=== PATIENT | male | born 1950 | race Caucasian/White ===

== ENCOUNTER 2019-03-12 09:09 | Observation (INO) | payer OTHER ==
[~2019-03-12] VITALS: Ht 165.1 cm; Wt 113.4 kg
[2019-03-12] VITALS (12 sets, daily range): BP systolic 116–162; BP diastolic 66–85
--- NOTE | ~2019-03-12 | H ---
[address] [address] HISTORY AND PHYSICAL Name: STEPHAN GRIFFITHS Room: [address] Will Busch#: [id number] Admission: 03/12/19 Attend Phys: Jonathan Stover MD, Discharge: 03/13/19 Date of : 48 Report #: [id number] THIS REPORT FOR: //name// Please refer to the History and Physical performed in the physician's office. By: 1453Medical Records Staff ASIYA /EMMA
[2019-03-12] MEDS ORDERED: QUINAPRIL HCL40 MG PO (09:47)
[2019-03-12] MEDS ORDERED: XYOSTED100 MG/0.5 SUBQ (09:47)
[2019-03-12] MEDS ORDERED: NORVASC 2.5 MG2.5 M1 PO (09:48)
[2019-03-12] MEDS ORDERED: BYSTOLIC10 MG PO (09:48)
[2019-03-12] MEDS ORDERED: OXYBUTYNIN 5 MG5 M2 PO (09:49)
[2019-03-12] MEDS ORDERED: LIPITOR 40 MG T40 M1 PO (09:49)
[2019-03-12] MEDS ORDERED: ARMOUR THYROID60 M1 PO (09:50)
[2019-03-12] MEDS ORDERED: ARMOUR THYROID90 M1 PO (09:51)
[2019-03-12] MEDS ORDERED: HYDRALAZINE 2525 MG PO (09:51)
[2019-03-12] MEDS ORDERED: LORAZEPAM 0.50.5 MG PO (09:51)
[2019-03-12] MEDS ORDERED: FLEXERIL PO ×2 (09:52)
[2019-03-12] MEDS ORDERED: OMEPRAZOLE40 MG PO (09:52)
[2019-03-12] MEDS ORDERED: TAMSULOSIN HCL0.4 MG PO (09:53)
[2019-03-12] MEDS ORDERED: CELEXA 20 MG TA20 MG PO (09:53)
[2019-03-12] MEDS ORDERED: FISH OIL 1,001000 M3 PO (09:53)
[2019-03-12] MEDS ORDERED: FENOFIBRATE160 MG PO (09:53)
[2019-03-12] MEDS ORDERED: DAILY MULTIVIT1 EAC2 PO (09:54)
[2019-03-12] MEDS ORDERED: PROBIOTIC1 EAC7 PO (09:54)
[2019-03-12] MEDS ORDERED: VITAMIN D35000 UNI1 PO (09:54)
[2019-03-12] MEDS ORDERED: SUPER B COMPLE1 EAC2 PO (09:55)
[2019-03-12] MEDS ORDERED: CITRACAL + BON1 EACH PO (09:55)
[2019-03-12] MEDS ORDERED: KLOR-CON M2020 MEQ PO (09:56)
[2019-03-12] MEDS ORDERED: ASA81BEC PO (09:56)
[2019-03-12] MEDS ORDERED: COQ-10100 MG PO (09:56)
[2019-03-12] MEDS ORDERED: DHEA25 MG PO (09:57)
[2019-03-12] MEDS ORDERED: CINNAMON500 MG PO (09:57)
[2019-03-12 09:58] LABS: HEMATOCRIT 55.5 % (42.0-52.0); HEMOGLOBIN 18.6 gm/dL (14.0-18.0); MCH 28.9 pg (26.0-34.0); MCHC 33.5 g/dL (28.0-37.0); MCV 86.1 fL (80.0-100.0); MPV 8.5 fl. (7.2-11.1); RBC 6.45 mil/uL (4.50-6.00); RDW-CV 15.5 % (10.5-14.5); WBC 7.2 thou/uL (4.0-11.0)
[2019-03-12 10:08] LABS: APTT 26.2 Seconds (25.0-31.3); INR 1.2; PROTIME 12.4 Seconds (9.20-11.50)
[2019-03-12 10:47] LABS: ALBUMIN 3.6 g/dL (3.4-5.0); ALKALINE PHOSPHATASE 65 U/L (46-116); ANION GAP 7 mmol/L (7-16); BUN 20 mg/dL (7-18); CALCIUM 9.4 mg/dL (8.5-10.1); CHLORIDE 106 mmol/L (98-107); CHOLESTEROL 138 mg/dL (<200); CO2 25 mmol/L (21-32); CREATININE 1.3 mg/dL (0.6-1.3); GLUCOSE 96 mg/dL (70-99); HDL CHOLESTEROL 39 mg/dL (>40); LDL CHOLESTEROL 76 mg/dL (<100); POTASSIUM 4.3 mmol/L (3.5-5.1); SGOT 19 U/L (15-37); SGPT 42 U/L (30-65); SODIUM 138 mmol/L (136-145); TC:HDL 3.5 Ratio (Not establshd); TOTAL BILIRUBIN 0.7 mg/dL (<0.1-1.0); TOTAL PROTEIN 6.9 g/dL (6.4-8.2); TRIGLYCERIDE 116 mg/dL (<150); VLDL 23 mg/dL (<40)
[2019-03-12 10:49] LABS: SERUM ASSESSMENT Clear
--- NOTE | 2019-03-12 15:12 | EKG ---
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1950 Requested By: Jonathan Stover Order Number: [id number] Vandana MD: Jonathan Stover Measurements Intervals [place] Rate: 62 P: 9 MT: 164 QRS: -31 QRSD: 97 T: 6 QT: 405 QTc: 412 Interpretive Statements Sinus rhythm Inferior infarct, old Minimal ST elevation, anterior leads No previous ECG available for comparison Electronically Signed On 03-12-2019 15:12:25 CDT by Jonathan Stover [email or web address] <ELECTRONICALLY SIGNED> By: Jonathan Stover MD, [facility] 03/12/19 1512 D: 10/1002 02 Jonathan Stover MD, FACC /EPI
--- NOTE | 2019-03-12 15:13 | EKG ---
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
--- NOTE | 2019-03-12 15:27 | CARD ---
[address] [address] CARDIAC CATH REPORT Name: AYESTEPHAN Room: [address] Will Busch#: [id number] Admission: 03/12/19 Attend Phys: Jonathan Stover MD, Discharge: Date of : 48 Report #: [id number] THIS REPORT FOR: //name// APPROVED REPORT Study performed: 03/12/2019 10:47:00 Patient Details The patient is a 68 year-old male Event Personnel Serena Couch RN RN, Mis Vera, Munir Rosenberg Holkins, John Clay Stain Mixer Procedures Performed Art Access - R femoral artery* , Left Heart CatheterizationDES Place w/wo Plasty Single LAD 201496 Indication Positive stress test Risk Factors Family History, Hypercholesterolemia, Hypertension Previous Procedures/Diagnoses Previous CVA Admission/Lab Medications/Medications given during procedure Angiomax bolus and infusion Procedure Narrative The patient was brought electively to the Cardiac Catheterization Laboratory and was prepped and draped in a sterile manner. The right femoral was infiltrated with 2% Lidocaine subcutaneous anesthesia. A 6 FR sheath was inserted into the right femoral artery. Coronary angiography was performed using coronary diagnostic catheters. The right coronary system was accessed and visualized with a Diagnostic catheter. The left coronary system was accessed and visualized with a Diagnostic catheter. The left ventricle was accessed and visualized with a Diagnostic catheter. Left ventricular/Aortic Valve gradient assessed via catheter pullback. Left ventriculogram was performed in [place] projection. Pre-demployment femoral angiogram was performed . Closure device was deployed with a 6 Fr Angioseal. The patient tolerated the procedure well and there were no complications associated with the procedure. [place] [address] CARDIAC CATH REPORT Name: AYESTEPHAN D Room: [address] Jo-Ann#: [id number] Admission: 03/12/19 Attend Phys: Jonathan Stover MD, Discharge: Date of : 48 Report #: [id number] Intraoperative Conscious Sedation Sedation start time: 1115 Case end Time: 1208 Fentanyl 25 mcg Versed 1 mg Contrast Type and Amount: Visipaque 325 ml Diagnostic Cath Left Main 0% narrowing LAD 30% proximal LAD narrowing with tandem 80% mid LAD stenoses Circumflex 75% tubular narrowing of the small first marginal branch with 40% second marginal branch stenosis Right Coronary Large dominant vessel with 40% mid vessel narrowing Left Ventriculography The left ventricle is normal in size with normal contractility. The left ventricular ejection fraction is estimated to be 65%. Left ventricular wall motion abnormalities are not present. There is no mitral insufficiency. Hemodynamics The aortic pressure is 112/60 mmHg with a mean of 86 mmHg. The left ventricular pressure is 110/5 mmHg with a mean of mmHg. The left ventricular end diastolic pressure is 12 mmHg. There was no gradient across the aortic valve upon pullback. PCI Technique Lesion Anticoagulation was achieved with Angiomax. Patient was preloaded with Brillinta. Percutaneous coronary intervention was performed on the mid left anterior descending artery segment. The lesion stenosis prior to intervention was 80% with YURIDIA 3 flow. A 6FR XB 3.5 100CM Guide Catheter was used to engage the ostium. A IG: ProwaterFlex 180CM Interventional Guidewire was used to cross the lesion. BALLOON DILATION A Balloon catheter Mini Trek RX 2.0 X 8 was inserted and inflated up to 16.00atm for 11seconds. Additional Inflation: 15.00atm for 9seconds. STENT DEPLOYMENT A drug-eluting stent Orisio 2.25x15 was inserted and inflated up to 12.00atm for 9seconds. Additional Inflation: 15.00atm [place] 11seconds. [place] [address] CARDIAC CATH REPORT Name: STEPHAN GRIFFITHS Room: [address]#: [id number] Admission: 03/12/19 Attend Phys: Jonathan Stover MD, Discharge: Date of : 48 Report #: [id number] Final angiography reveals 0 % stenosis with YURIDIA 3 flow. Conclusion #1 significant coronary artery disease characterized by the following: A 30% proximal LAD narrowing with tandem 80% mid vessel stenoses B 75% tubular narrowing of the small first marginal branch of the circumflex with 40% second marginal branch narrowing C large dominant right coronary artery with 40% mid vessel narrowing #2 normal left ventricular systolic function, estimate ejection fraction 65% #3 normal left-sided hemodynamics study #4 successful percutaneous coronary intervention with deployment of a drug-eluting stent in the mid LAD with 0% residual narrowing and YURIDIA-3 flow to the distal vessel Recommendations Cardiac Risk Reduction Program Aggressive Medical Therapy Medications Administered Aspirin (any) Ticagrelor Diagnostic Cath Approved by: Jonathan Stover MD Date/Time: 03/12/2019 15:25:51 <ELECTRONICALLY SIGNED> By: Jonathan Stover MD, [facility] 03/12/19 1526 1526 1526Jonathan Stover MD, FACC /INF
[2019-03-13] VITALS: BP 167/88
[2019-03-13 04:00] VITALS: BP 128/77
[2019-03-13 05:24] LABS: MCH 28.2 pg (26.0-34.0); MCHC 32.6 g/dL (28.0-37.0); MCV 86.6 fL (80.0-100.0); MPV 8.5 fl. (7.2-11.1); RBC 5.89 mil/uL (4.50-6.00); RDW-CV 15.3 % (10.5-14.5); WBC 7.7 thou/uL (4.0-11.0)
[2019-03-13 05:29] LABS: HEMOGLOBIN 16.6 gm/dL (14.0-18.0)
[2019-03-13 05:36] LABS: ALBUMIN 3.1 g/dL (3.4-5.0); ALKALINE PHOSPHATASE 57 U/L (46-116); ANION GAP 7 mmol/L (7-16); BUN 15 mg/dL (7-18); CALCIUM 9.1 mg/dL (8.5-10.1); CHLORIDE 107 mmol/L (98-107); CHOLESTEROL 114 mg/dL (<200); CO2 26 mmol/L (21-32); CREATININE 1.3 mg/dL (0.6-1.3); GLUCOSE 79 mg/dL (70-99); HDL CHOLESTEROL 32 mg/dL (>40); LDL CHOLESTEROL 57 mg/dL (<100); POTASSIUM 4.2 mmol/L (3.5-5.1); SGOT 19 U/L (15-37); SGPT 35 U/L (30-65); SODIUM 140 mmol/L (136-145); TC:HDL 3.6 Ratio (Not establshd); TOTAL BILIRUBIN 0.9 mg/dL (<0.1-1.0); TOTAL PROTEIN 6.1 g/dL (6.4-8.2); TRIGLYCERIDE 129 mg/dL (<150); TROPONIN-I LEVEL <0.06 ng/mL (<0.06); VLDL 26 mg/dL (<40)
[2019-03-13 05:37] LABS: SERUM ASSESSMENT Clear
[2019-03-13 08:00] VITALS: BP 149/88
[2019-03-13] MEDS ORDERED: BRILINTA90 MG PO (15:13)
[2019-03-13] MEDS ORDERED: NITROGLYCERIN0.4 MG SUBLING (15:14)
--- NOTE | 2019-03-13 16:58 | EKG ---
[place] [address] ELECTROCARDIOGRAM REPORT Name: STEPHAN GRIFFITHS Room: [address]#: [id number] Admission: 03/12/19 Attend Phys: Jonathan Stover MD, Discharge: 03/13/19 Date of : 48 Report #: [id number] THIS REPORT FOR: //name// 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
--- NOTE | 2019-03-15 14:13 | D ---
[facility] [address] [place] [address] DISCHARGE SUMMARY Name: STEPHAN GRIFFITHS Room: [address] Will Busch#: [id number] Admission: 03/12/19 Attend Phys: Jonathan Stover MD, Discharge: 03/13/19 Date of : 48 Report #: [id number] THIS REPORT FOR: //name// CC: Trey Francisco MD DATE OF SERVICE: 03/13/2019 FINAL DISCHARGE DIAGNOSES: 1. Abnormal nuclear stress test with a markedly increased coronary calcium score as well. 2. Dyspnea on exertion. 3. Coronary artery disease. 4. Hyperlipidemia. 5. Hypertension. 6. History of cerebrovascular accident. 7. Status post percutaneous coronary intervention to the left anterior descending on 03/12/2019. PROCEDURES: 03/12/2019 -- left heart catheterization, left ventriculography, selective coronary arteriography, and percutaneous coronary intervention with deployment of drug-eluting stent in the mid LAD. HOSPITAL COURSE: The patient is a very pleasant 68-year-old male with a number of risk factors for coronary artery disease including hypertension and hyperlipidemia. He had a markedly increased coronary calcium score and abnormal nuclear stress test. In that context, I performed cardiac catheterization on 03/12/2019 which revealed tandem 80% mid LAD stenoses. He had modest circumflex and right coronary narrowings of no hemodynamic significance. Left ventricular function was normal and ejection fraction of 65%. I performed percutaneous coronary intervention, deploying 1 drug-eluting stent in the mid LAD at the site of 80% tandem stenosis with 0% residual narrowing and YURIDIA 3 flow of the distal vessel. The patient did well post-procedurally. Troponin was less than 0.06. Sodium 140, potassium 4.2, BUN 15, creatinine 1.3. White blood cell count 7700, hemoglobin 16.6, hematocrit 51.0, platelets 227,000. The patient ambulated in the hallways without difficulty and there was good hemostasis at the right femoral site of catheterization. DISCHARGE MEDICATIONS: He was discharged to home on the following medications: [place] [address] DISCHARGE SUMMARY Name: STEPHAN GRIFFITHS Room: [address] Jo-Ann#: [id number] Admission: 03/12/19 Attend Phys: Jonathan Stover MD, Discharge: 03/13/19 Date of : 48 Report #: [id number] Amlodipine 10 mg daily, aspirin 81 mg daily, atorvastatin 40 mg daily, probiotic one capsule daily, calcium, Citracal one tablet b.i.d., vitamin D3 5000 units b.i.d., cinnamon bark 2000 mg b.i.d., Celexa 20 mg daily, Flexeril 10 mg t.i.d., fenofibrate 160 mg daily, hydralazine 25 mg b.i.d., lorazepam 0.5 mg at bedtime, multivitamin 1 tablet daily, nebivolol 20 mg daily, fish oil 1000 mg b.i.d., omeprazole 40 mg daily, oxybutynin 15 mg daily, potassium chloride 20 mEq daily, Prasterone DHEA 25 mg daily, quinapril 40 mg daily, tamsulosin 0.4 mg b.i.d., testosterone enanthate 150 mg every 10 days, [place] Thyroid 60 mg and 90 mg in divided doses, ticagrelor 90 mg b.i.d. with 180 mg loading dose on 03/12/2019, Coenzyme Q 200 mg b.i.d., vitamin B complex one tablet daily, and p.r.n. sublingual nitroglycerin. The patient is discharged to home in stable condition on the aforementioned medications with followup with me in 3-4 weeks. <ELECTRONICALLY SIGNED> By: Jonathan Stover MD, FACC 03/15/19 1413 1043 1121Jocalin Stover MD, FACC /nt
== END 2019-03-13 15:40 | disposition home or self-care (01) ==
LOC: M.CL 09:09 → M.TBA-CV 12:32 → M.2W 12:32
PROVIDERS: ADMIT Internal Medicine
DX: I25.10 Atherosclerotic heart disease of native coronary artery without angina pectoris (principal); E78.00 Pure hypercholesterolemia, unspecified; E66.09 Other obesity due to excess calories; E78.2 Mixed hyperlipidemia; I12.9 Hypertensive chronic kidney disease with stage 1 through stage 4 chronic kidney disease, or unspecified chronic kidney disease; N18.9 Chronic kidney disease, unspecified; G47.30 Sleep apnea, unspecified; F51.01 Primary insomnia; Z68.39 Body mass index [BMI] 39.0-39.9, adult; Z79.82 Long term (current) use of aspirin; Z79.899 Other long term (current) drug therapy; Z87.891 Personal history of nicotine dependence